=== PATIENT | female | born 1940 | race African-American/Black ===

== ENCOUNTER 2016-06-02 14:08 | Outpatient (RCR) | payer MEDICARE ==
[~2016-06-02 14:08] MED LIST: ALPRAZOLAM1 MG ORAL; ALPRAZOLAM1 MG PO; AMBIEN10 M1 ORAL; CEFEPIME 11 GM/50 ML IV; COLACE100 MG ORAL; COUMADIN1 MG ORAL; COZAAR50 MG PO; DIPHENHYDRAMINE25 M1 ORAL; GABAPENTIN400 MG PO; HEPARIN SO5000 UNIT2 SUBQ; HYDROCHLOROTH12.5 MG ORAL; LEVOTHYROXINE75 MCG ORAL; LIPITOR10 MG ORAL; LORCET 10-6501 EACH PO; METFORMIN HCL1000 M1 ORAL; MOM30 ML ORAL; NASONEX17 GM NASAL; NASONEX17 GM NS; NEURONTIN400 MG ORAL; NORCO 5-325 TA1 EAC1 ORAL; NORVASC5 MG ORAL; ONDANSETRON ODT8 MG PO; OXYCODON-ACETA1 EACH PO; PAROXETINE HCL20 MG PO; PERCOCET 7.5-31 EACH ORAL; PREVACID15 MG ORAL; SENOKOT1 TAB ORAL; VITAMIN C500 M1 ORAL; VITAMIN D31000 UNI1 PO; XANAX0.5 MG ORAL; ZOCOR10 MG ORAL; ZOLPIDEM TARTRA10 MG ORAL; ZYLOPRIM100 MG ORAL
== END 2016-06-30 | disposition home or self-care (01) ==
LOC: WCC 14:08
DX: L97.522 Non-pressure chronic ulcer of other part of left foot with fat layer exposed (principal); E08.621 Diabetes mellitus due to underlying condition with foot ulcer; E03.9 Hypothyroidism, unspecified; M19.90 Unspecified osteoarthritis, unspecified site; D64.9 Anemia, unspecified; Z79.01 Long term (current) use of anticoagulants
CPT/HCPCS: 11042; G0463

== ENCOUNTER 2016-07-07 13:30 | Outpatient (RCR) | payer MEDICARE | END 2016-07-28 | disposition home or self-care (01) | LOC: WCC 13:30 | DX: L97.522 Non-pressure chronic ulcer of other part of left foot with fat layer exposed (principal); E08.621 Diabetes mellitus due to underlying condition with foot ulcer; Z79.01 Long term (current) use of anticoagulants; E03.9 Hypothyroidism, unspecified; M19.90 Unspecified osteoarthritis, unspecified site; L97.322 Non-pressure chronic ulcer of left ankle with fat layer exposed | CPT/HCPCS: 11721; G0463 ==

== ENCOUNTER → 2016-07-21 | Outpatient (CLI) | payer MEDICARE ==
--- NOTE | 2016-07-21 14:40 | Diagnostic Imaging Report ---
Indication: PAIN Technique: 3 views of the left ankle Comparison: none Findings: No acute fractures. No dislocations. There is surgical hardware seen reducing old healed distal fibular and medial tibial fractures bones are osteoporotic. There are mild degenerative changes of the ankle joint. There is slight lateral soft tissue swelling Impression: No acute process. Findings as noted
== END | disposition home or self-care (01) ==
LOC: RAD 13:08
DX: S91.002A Unspecified open wound, left ankle, initial encounter (principal); X58.XXXA Exposure to other specified factors, initial encounter; Y93.9 Activity, unspecified; Y92.9 Unspecified place or not applicable

== ENCOUNTER 2016-08-04 13:19 | Outpatient (RCR) | payer MEDICARE | END 2016-08-28 | disposition home or self-care (01) | LOC: WCC 13:19 | DX: L97.322 Non-pressure chronic ulcer of left ankle with fat layer exposed (principal); E08.621 Diabetes mellitus due to underlying condition with foot ulcer; R60.0 Localized edema; E03.9 Hypothyroidism, unspecified; M19.90 Unspecified osteoarthritis, unspecified site; D64.9 Anemia, unspecified; Z79.01 Long term (current) use of anticoagulants | CPT/HCPCS: 87070; 87181; 87205; G0463 ==

== ENCOUNTER 2016-09-01 12:53 | Outpatient (RCR) | payer MEDICARE ==
[~2016-09-01] VITALS: Ht 170.2 cm; Wt 83.9 kg
[2016-09-24] MEDS ORDERED: Lidocaine HCl 2% Jelly 5ml Tube TOPIC ONE (11:15)
== END 2016-09-27 | disposition home or self-care (01) ==
LOC: WCC 12:53
DX: L97.322 Non-pressure chronic ulcer of left ankle with fat layer exposed (principal); E08.621 Diabetes mellitus due to underlying condition with foot ulcer; R60.0 Localized edema; E03.9 Hypothyroidism, unspecified; M19.90 Unspecified osteoarthritis, unspecified site; D64.9 Anemia, unspecified; Z79.01 Long term (current) use of anticoagulants
CPT/HCPCS: 11042; 11043

== ENCOUNTER 2016-09-29 13:01 | Outpatient (RCR) | payer MEDICARE ==
[~2016-09-29] VITALS: Ht 170.2 cm; Wt 83.9 kg
[2016-10-02] MEDS ORDERED: Lidocaine HCl 2% Jelly 5ml Tube TOPIC ONE (11:45)
[2016-10-09] MEDS ORDERED: Lidocaine HCl 2% Jelly 5ml Tube TOPIC ONE (16:00)
[2016-10-15] MEDS ORDERED: Lidocaine HCl 2% Jelly 5ml Tube TOPIC ONE (16:45)
== END 2016-10-28 | disposition home or self-care (01) ==
LOC: WCC 13:01
DX: L97.322 Non-pressure chronic ulcer of left ankle with fat layer exposed (principal); E08.621 Diabetes mellitus due to underlying condition with foot ulcer; R60.0 Localized edema; M19.90 Unspecified osteoarthritis, unspecified site; Z79.01 Long term (current) use of anticoagulants
CPT/HCPCS: 11042; G0463

== ENCOUNTER 2016-09-29 14:27 | Outpatient (CLI) | payer MEDICARE ==
[2016-09-29 15:29] LABS: ALANINE AMINOTRANSFERASE 11 U/L (3-33); ALBUMIN/GLOBULIN RATIO 0.9 (1.0-2.7); ANION GAP 15 (5-15); ASPARTATE AMINO TRANSFERASE 23 U/L (5-40); CALCIUM 10.7 mg/dL (8.6-10.2); CARBON DIOXIDE 27 mEQ/L (20-30); CHLORIDE 95 mEQ/L (98-107); CREATININE 1.3 mg/dL (0.5-0.9); HEMOLYSIS 17; POTASSIUM 4.2 mEQ/L (3.4-4.9); SODIUM 137 mEQ/L (135-145); TOTAL PROTEIN 8.8 g/dL (6.6-8.7)
== END 2016-09-29 15:27 | disposition home or self-care (01) ==
LOC: LAB 14:27
DX: L97.329 Non-pressure chronic ulcer of left ankle with unspecified severity (principal); L97.529 Non-pressure chronic ulcer of other part of left foot with unspecified severity; E46 Unspecified protein-calorie malnutrition
CPT/HCPCS: 36415; 80053

== ENCOUNTER 2016-10-06 12:37 | Outpatient (CLI) | payer MEDICARE | END 2016-10-06 13:50 | disposition home or self-care (01) | LOC: VAS 12:37 | DX: L97.929 Non-pressure chronic ulcer of unspecified part of left lower leg with unspecified severity (principal); L97.919 Non-pressure chronic ulcer of unspecified part of right lower leg with unspecified severity; E46 Unspecified protein-calorie malnutrition | CPT/HCPCS: 93922; 93925; 93970 ==

== ENCOUNTER 2016-11-03 12:48 | Outpatient (RCR) | payer MEDICARE | END 2016-11-27 | disposition home or self-care (01) | LOC: WCC 12:48 | DX: L97.322 Non-pressure chronic ulcer of left ankle with fat layer exposed (principal); E08.621 Diabetes mellitus due to underlying condition with foot ulcer; R60.0 Localized edema; T84.625A Infection and inflammatory reaction due to internal fixation device of left fibula, initial encounter; X58.XXXA Exposure to other specified factors, initial encounter; Y93.9 Activity, unspecified; Y92.9 Unspecified place or not applicable; Z79.01 Long term (current) use of anticoagulants; M19.90 Unspecified osteoarthritis, unspecified site | CPT/HCPCS: 29580; 87070; 87181; 87205; G0463 ==

== ENCOUNTER 2016-11-03 12:58 | Outpatient (CLI) | payer MEDICARE ==
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
--- NOTE | 2016-11-18 14:47 | Diagnostic Imaging Report ---
Indication: Skin ulceration in the lateral part ankle. Technique: Left ankle/hindfoot imaging utilizing multiplanar T1 fast spin-echo, proton and T2 fast spin-echo with fat saturation, and STIR. Comparison: None Findings: There is extensive magnetic susceptibility artifact especially with regard to the lateral malleolus and distal fibula which shows a plate and several screws (on plain film x-ray 07/21/16). Osteomyelitis cannot be excluded in the lateral malleolus which is the area of the ulceration. Within the area of bone that can be evaluated, there is no evidence of osteomyelitis with relatively preserved signal intensity on T1 and T2-weighted images. There is subcutaneous edema and thickening of the skin in the lateral part ankle, a finding that is nonspecific but could be due to cellulitis. There is also susceptibility artifact associated with 2 medial malleolus screws. Impression: Study is largely nondiagnostic for osteomyelitis due to magnetic susceptibility hardware artifact. No osteomyelitis as visualized.
== END 2016-11-03 14:58 | disposition home or self-care (01) ==
LOC: MRI 12:58
DX: M86.9 Osteomyelitis, unspecified (principal)
CPT/HCPCS: 29580; 87070; 87181; 87205

== ENCOUNTER 2017-04-10 16:56 | Inpatient (IN) | payer MEDICARE ==
[~2017-04-10] VITALS: Ht 170.2 cm; Wt 81.6 kg
[2017-04-10] MEDS ORDERED: UNOBMED (17:04)
[2017-04-10 18:28] VITALS: BP 120/77
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
[2017-04-10 19:41] LABS: BASOPHILS % (AUTO) 0.4 % (0.0-2.0); EOSINOPHILS % (AUTO) 0.5 % (0.0-3.0); LYMPHOCYTES % (AUTO) 18.2 % (20.0-45.0); MEAN CORPUSCULAR HEMOGLOBIN 30.8 PG (27.0-31.0); MEAN CORPUSCULAR HGB CONC 31.2 G/DL (32.0-36.0); MEAN CORPUSCULAR VOLUME 99 FL (80-99); MEAN PLATELET VOLUME 8.1 FL (6.5-10.1); MONOCYTES % (AUTO) 3.7 % (1.0-10.0); NEUTROPHILS % (AUTO) 77.3 % (45.0-75.0); PLATELET COUNT 238 K/UL (150-450); RED BLOOD COUNT 5.05 M/UL (4.20-5.40); RED CELL DISTRIBUTION WIDTH 11.5 % (11.6-14.8); WHITE BLOOD COUNT 13.6 K/UL (4.8-10.8)
[2017-04-10 20:05] LABS: INR 1.9 (0.9-1.1); PROTHROMBIN TIME 20.1 SEC (9.30-11.50)
[2017-04-10 20:47] LABS: ALANINE AMINOTRANSFERASE 22 U/L (12-78); ALBUMIN/GLOBULIN RATIO 0.6 (1.0-2.7); ANION GAP 19 mmol/L (5-15); ASPARTATE AMINO TRANSFERASE 16 U/L (15-37); CALCIUM 10.7 MG/DL (8.5-10.1); CARBON DIOXIDE 23 MMOL/L (21-32); CHLORIDE 86 MMOL/L (98-107); CKMB 1.9 NG/ML (0.0-3.6); CREATININE 2.7 MG/DL (0.55-1.30); LIPASE 1014 U/L (73-393); POTASSIUM 4.7 MMOL/L (3.5-5.1); SODIUM 128 MMOL/L (136-145); TOTAL PROTEIN 10.2 G/DL (6.4-8.2)
[2017-04-10 21:00] VITALS: BP 153/77
[2017-04-10 21:03] LABS: APPEARANCE,URINE SLIGHTLY CLOUDY; KETONES,URINE 3+ (NEGATIVE); LEUKOCYTE ESTERASE ,URINE NEGATIVE (NEGATIVE); NITRITE,URINE POSITIVE (NEGATIVE); PH,URINE 5 (4.5-8.0); PROTEIN,URINE 2+ (NEGATIVE); UROBILINOGEN,URINE NORMAL MG/DL (0.0-1.0)
[2017-04-10 21:12] LABS: RBC,URINE 0-2 /HPF (0 - 2)
[2017-04-10 21:13] LABS: BACTERIA,URINE MODERATE /HPF; SQUAMOUS EPITHELIAL CELL,UR OCCASIONAL /LPF (NONE/OCC)
[2017-04-10] MEDS ORDERED: cefTRIAXone 1 GM in NS 55 ML IVPB ONE (21:15)
[2017-04-10 23:45] VITALS: BP 133/85
[2017-04-11] VITALS (10 sets, daily range): BP systolic 113–162; BP diastolic 52–91
[2017-04-11 05:48] LABS: ANION GAP 6 mmol/L (5-15); CALCIUM 9.7 MG/DL (8.5-10.1); CARBON DIOXIDE 31 MMOL/L (21-32); CHLORIDE 106 MMOL/L (98-107); CREATININE 2.1 MG/DL (0.55-1.30); POTASSIUM 3.2 MMOL/L (3.5-5.1); SODIUM 143 MMOL/L (136-145)
[2017-04-11 05:54] LABS: ALANINE AMINOTRANSFERASE 20 U/L (12-78); ALBUMIN/GLOBULIN RATIO 0.6 (1.0-2.7); ASPARTATE AMINO TRANSFERASE 19 U/L (15-37); TOTAL PROTEIN 8.8 G/DL (6.4-8.2)
--- NOTE | 2017-04-11 10:03 | Diagnostic Imaging Report ---
Indication: SOB Comparison: 01/25/2015 Findings: Single view of the chest shows a normal cardiomediastinal silhouette. Pulmonary vasculature is normal. Lung are clear. Soft tissues and osseous structures are within normal limits. Impression: No acute chest disease
[2017-04-11] MEDS ORDERED: Levemir Flexpen SUBQ SCH (12:00)
[2017-04-11] MEDS ORDERED: NovoLOG Insulin Flexpen SUBQ SCH (13:00)
--- NOTE | 2017-04-11 13:37 | History & Physical ---
History and Physical History & Physicial dict DM w hyperosmolar state, better cont IVF, insulin VIET CHRISITAN Apr 11, 2017 13:37
[2017-04-11] MEDS ORDERED: ALPRAZolam 0.5mg tab ORAL PRN ×2 (13:45→14:00)
[2017-04-11] MEDS ORDERED: Norco 5mg/325mg tab ORAL PRN ×2 (13:45→17:45)
[2017-04-11] MEDS ORDERED: KCl 10% 40mEq/30ml liquid NG SCH ×2 (14:00→18:00)
[2017-04-11 15:16] LABS: INR 2.2 (0.9-1.1); PROTHROMBIN TIME 22.7 SEC (9.30-11.50)
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
[2017-04-11] MEDS: NovoLOG Insulin Flexpen SUBQ SCH ×2 (16:50→21:13)
[2017-04-11] MEDS: ALPRAZolam 0.5mg tab ORAL SCH (16:53)
[2017-04-11] MEDS ORDERED: Warfarin Sodium 4mg ORAL SCH (17:00)
[2017-04-11] MEDS ORDERED: ALPRAZolam 0.5mg tab ORAL SCH (18:00)
[2017-04-11] MEDS ORDERED: Zolpidem 5mg tab ORAL SCH (21:00)
[2017-04-11] MEDS: Levemir Flexpen SUBQ SCH (21:14)
[2017-04-11] MEDS: Zolpidem 5mg tab ORAL SCH (21:14)
[2017-04-12] VITALS: BP 136/100
[2017-04-12] MEDS: NovoLOG Insulin Flexpen SUBQ SCH ×8 (01:06→21:02)
[2017-04-12 04:00] VITALS: BP 131/76
[2017-04-12 06:00] LABS: BASOPHILS % (AUTO) 0.8 % (0.0-2.0); LYMPHOCYTES % (AUTO) 28.8 % (20.0-45.0); MEAN CORPUSCULAR HEMOGLOBIN 32.7 PG (27.0-31.0); MEAN CORPUSCULAR HGB CONC 34.1 G/DL (32.0-36.0); MEAN CORPUSCULAR VOLUME 96 FL (80-99); MEAN PLATELET VOLUME 8.6 FL (6.5-10.1); MONOCYTES % (AUTO) 6.1 % (1.0-10.0); NEUTROPHILS % (AUTO) 63.3 % (45.0-75.0); PLATELET COUNT 203 K/UL (150-450); RED BLOOD COUNT 4.37 M/UL (4.20-5.40); RED CELL DISTRIBUTION WIDTH 11.9 % (11.6-14.8); WHITE BLOOD COUNT 8.7 K/UL (4.8-10.8)
[2017-04-12 06:26] LABS: ALANINE AMINOTRANSFERASE 17 U/L (12-78); ALBUMIN/GLOBULIN RATIO 0.6 (1.0-2.7); ANION GAP 5 mmol/L (5-15); ASPARTATE AMINO TRANSFERASE 28 U/L (15-37); CALCIUM 10.2 MG/DL (8.5-10.1); CARBON DIOXIDE 28 MMOL/L (21-32); CHLORIDE 111 MMOL/L (98-107); CREATININE 1.6 MG/DL (0.55-1.30); POTASSIUM 4.2 MMOL/L (3.5-5.1); SODIUM 144 MMOL/L (136-145); THYROID STIMULATING HORMONE 0.969 uiU/mL (0.360-3.740); TOTAL PROTEIN 8.3 G/DL (6.4-8.2)
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
--- NOTE | 2017-04-12 07:45 | General Progress Note ---
Assessment/Plan Problem List: (1) Hypothyroidism ICD Codes: E03.9 - Hypothyroidism, unspecified SNOMED: 02480267 (2) DKA (diabetic ketoacidoses) ICD Codes: E13.10 - Other specified diabetes mellitus with ketoacidosis without coma SNOMED: 596241676, 14948780 (3) HTN (hypertension) ICD Codes: I10 - HTN (hypertension) SNOMED: 25184222 (4) DM (diabetes mellitus) ICD Codes: E11.9 - DM (diabetes mellitus) SNOMED: 37543100 Assessment/Plan continue Levemir 15 units bid add Novolog 8 units ac tid continue Levothyroxine 75 mcg daily - TSH is at target Subjective ROS Limited/Unobtainable: Yes Allergies: Coded Allergies: IODINE (Verified Allergy, Unknown, UNSPECIFIED, 08/11/10) LEVOFLOXACIN (Verified Allergy, Unknown, 12/14/11) METOCLOPRAMIDE (Verified Allergy, Unknown, UNSPECIFIED, 08/11/10) METRONIDAZOLE (Unverified Allergy, Unknown, Itching, 10/17/14) MORPHINE (Verified Allergy, Unknown, 08/11/10) Subjective events noted - transferred out of ICU Objective Last 24 Hour Vital Signs Date Time Temp Pulse Resp B/P (MAP) Pulse Ox O2 Delivery O2 Flow Rate FiO2 04/12/17 04:00 98.6 84 18 131/76 100 Room Air 84 04/12/17 04:00 84 04/12/17 00:00 97.9 86 20 136/100 100 Room Air 86 04/12/17 00:00 93 04/11/17 20:00 93 04/11/17 20:00 98.6 93 16 113/64 100 Room Air 93 04/11/17 16:11 79 04/11/17 16:11 97.4 79 21 124/74 98 Room Air 04/11/17 14:00 96 21 153/85 98 Room Air 04/11/17 13:00 87 22 129/72 98 Room Air 04/11/17 12:00 97.5 87 15 134/91 100 Room Air 04/11/17 12:00 87 04/11/17 11:00 86 15 120/83 95 Room Air 04/11/17 10:00 88 15 114/74 100 Room Air 04/11/17 09:00 97.1 64 23 162/52 100 Room Air 04/11/17 08:20 86 14 142/79 96 Room Air 04/11/17 07:50 98.5 86 14 142/79 96 Room Air Laboratory Tests 04/11/17 14:45: Prothrombin Time 22.7H, Prothromb Time International Ratio 2.2H 04/12/17 03:25: White Blood Count 8.7, Red Blood Count 4.37, Hemoglobin 14.3, Hematocrit 41.8, Mean Corpuscular Volume 96, Mean Corpuscular Hemoglobin 32.7H, Mean Corpuscular Hemoglobin Concent 34.1, Red Cell Distribution Width 11.9, Platelet Count 203, Mean Platelet Volume 8.6, Neutrophils (%) (Auto) 63.3, Lymphocytes (%) (Auto) 28.8, Monocytes (%) (Auto) 6.1, Eosinophils (%) (Auto) 1.0, Basophils (%) (Auto ) 0.8, Sodium Level 144, Potassium Level 4.2, Chloride Level 111H, Carbon Dioxide Level 28, Anion Gap 5, Blood Urea Nitrogen 37H, Creatinine 1.6H, Estimat Glomerular Filtration Rate , Glucose Level 101#, Calcium Level 10.2H, Total Bilirubin 0.3, Aspartate Amino Transf (AST/SGOT) 28, Alanine Aminotransferase (ALT/SGPT) 17, Alkaline Phosphatase 111, Total Protein 8.3H, Albumin 3.0L, Globulin 5.3, Albumin/Globulin Ratio 0.6L, Thyroid Stimulating Hormone (TSH) 0.969 Height (Feet): 5 Height (Inches): 7.00 Weight (Pounds): 180 General Appearance: lethargic Neck: normal alignment Cardiovascular: normal rate Respiratory/Chest: decreased breath sounds Abdomen: normal bowel sounds Pelvis: normal external exam Edema: 1+ Arm (L), 1+ Arm (R), 1+ Leg (L), 1+ Leg (R), 1+ Pedal (L), 1+ Pedal ( R), 1+ Generalized Objective Current Medications Medications (Trade) Dose Ordered Sig/Jeanne Route PRN Reason Start Time Stop Time Status Last Admin Dose Admin Acetaminophen/ Hydrocodone Bitart ([place] 5/325) 1 tab Q4H PRN ORAL For Pain 04/11/17 17:45 04/18/17 13:44 Alprazolam (Xanax) 0.5 mg Q8H PRN ORAL For Anxiety 04/11/17 14:00 04/18/17 13:59 Alprazolam (Xanax) 0.5 mg THREE TIMES A DAY ORAL 04/11/17 18:00 04/18/17 17:59 04/11/17 16:53 Dextrose (Dextrose 50%) STAT PRN IV Hypoglycemia 04/12/17 10:15 05/11/17 10:14 Gabapentin (Neurontin) 400 mg TID ORAL 04/11/17 18:00 05/11/17 17:59 04/11/17 16:53 Insulin Aspart (NovoLOG) EVERY 4 HOURS SUBQ 04/11/17 17:00 05/11/17 12:59 04/12/17 01:06 Insulin Detemir (Levemir) 15 units Q12HR SUBQ 04/11/17 21:00 05/11/17 11:59 04/11/17 21:14 Lansoprazole (Prevacid) 15 mg DAILY ORAL 04/12/17 09:00 05/12/17 08:59 Levothyroxine Sodium (Synthroid) 75 mcg BEFORE BREAKFAST ORAL 04/12/17 06:30 05/12/17 06:29 04/12/17 06:05 Paroxetine HCl (Paxil) 40 mg DAILY ORAL 04/12/17 09:00 05/12/17 08:59 Sodium Chloride 1,000 ml @ 100 mls/hr Q10H IV 04/11/17 14:45 05/11/17 06:14 04/12/17 02:35 Warfarin Sodium (Coumadin) 4 mg COUMADIN ORAL 04/11/17 17:00 04/16/17 16:59 04/11/17 16:49 Zolpidem Tartrate (Ambien) 5 mg BEDTIME ORAL 04/11/17 21:00 04/18/17 20:59 04/11/17 21:14 Item Value Date Time Bedside Blood Glucose 89 mg/dl 04/12/17 0500 Bedside Blood Glucose 239 mg/dl H 04/12/17 0106 Bedside Blood Glucose 379 mg/dl H 04/11/17 2114 Bedside Blood Glucose 218 mg/dl H 04/11/17 1650 Bedside Blood Glucose 261 mg/dl H 04/11/17 1228 Bedside Blood Glucose 198 mg/dl H 04/11/17 0750 Bedside Blood Glucose 221 mg/dl H 04/11/17 0600 MIHAI ROJAS Apr 12, 2017 07:45
[2017-04-12 08:00] VITALS: BP 157/70
[2017-04-12] MEDS: ALPRAZolam 0.5mg tab ORAL SCH ×3 (08:41→17:29)
[2017-04-12] MEDS: PARoxetine 20mg tab ORAL SCH (08:41)
[2017-04-12] MEDS: Levemir Flexpen SUBQ SCH ×2 (08:42→21:03)
[2017-04-12] MEDS ORDERED: PARoxetine 20mg tab ORAL SCH (09:00)
[2017-04-12] MEDS ORDERED: Warfarin Sodium 1mg ORAL SCH (09:00)
[2017-04-12] MEDS ORDERED: Lansoprazole 15mg cap ORAL SCH (09:00)
[2017-04-12 09:02] LABS: INR 2.8 (0.9-1.1)
[2017-04-12] MEDS: Lansoprazole 15mg cap ORAL SCH (10:42)
[2017-04-12 12:00] VITALS: BP 148/86
--- NOTE | 2017-04-12 13:20 | General Progress Note ---
Assessment/Plan Assessment/Plan 1. Hyperosmolar state, improved 2. Diabetes, mild DKA per endo 3. Dehydration with azotemia. 4. Hyponatremia, improved 5. Elevated lipase without signs of pancreatitis. 6. Hypertension. 7. Chronic pain. 8. Gout. 9. Depression. 10. UTI BS excellent tolerating PO UI - ordered rx dc plan tomorrow Subjective Constitutional: Reports: other - anxiety Cardiovascular: Denies: chest pain Respiratory: Denies: shortness of breath Allergies: Coded Allergies: IODINE (Verified Allergy, Unknown, UNSPECIFIED, 08/11/10) LEVOFLOXACIN (Verified Allergy, Unknown, 12/14/11) METOCLOPRAMIDE (Verified Allergy, Unknown, UNSPECIFIED, 08/11/10) METRONIDAZOLE (Unverified Allergy, Unknown, Itching, 10/17/14) MORPHINE (Verified Allergy, Unknown, 08/11/10) Objective Last 24 Hour Vital Signs Date Time Temp Pulse Resp B/P (MAP) Pulse Ox O2 Delivery O2 Flow Rate FiO2 04/12/17 08:00 97.7 94 20 157/70 95 Room Air 84 04/12/17 08:00 90 04/12/17 04:00 98.6 84 18 131/76 100 Room Air 84 04/12/17 04:00 84 04/12/17 00:00 97.9 86 20 136/100 100 Room Air 86 04/12/17 00:00 93 04/11/17 20:00 93 04/11/17 20:00 98.6 93 16 113/64 100 Room Air 93 04/11/17 16:11 79 04/11/17 16:11 97.4 79 21 124/74 98 Room Air 04/11/17 14:00 96 21 153/85 98 Room Air Intake and Output 04/12/17 04/13/17 18:59 06:59 Intake Total 600 ml Balance 600 ml IV Total 600 ml # Bowel Movements 1 Laboratory Tests 04/11/17 14:45: Prothrombin Time 22.7H, Prothromb Time International Ratio 2.2H 04/12/17 03:25: White Blood Count 8.7, Red Blood Count 4.37, Hemoglobin 14.3, Hematocrit 41.8, Mean Corpuscular Volume 96, Mean Corpuscular Hemoglobin 32.7H, Mean Corpuscular Hemoglobin Concent 34.1, Red Cell Distribution Width 11.9, Platelet Count 203, Mean Platelet Volume 8.6, Neutrophils (%) (Auto) 63.3, Lymphocytes (%) (Auto) 28.8, Monocytes (%) (Auto) 6.1, Eosinophils (%) (Auto) 1.0, Basophils (%) (Auto ) 0.8, Sodium Level 144, Potassium Level 4.2, Chloride Level 111H, Carbon Dioxide Level 28, Anion Gap 5, Blood Urea Nitrogen 37H, Creatinine 1.6H, Estimat Glomerular Filtration Rate , Glucose Level 101#, Calcium Level 10.2H, Total Bilirubin 0.3, Aspartate Amino Transf (AST/SGOT) 28, Alanine Aminotransferase (ALT/SGPT) 17, Alkaline Phosphatase 111, Total Protein 8.3H, Albumin 3.0L, Globulin 5.3, Albumin/Globulin Ratio 0.6L, Thyroid Stimulating Hormone (TSH) 0.969 04/12/17 08:45: Prothrombin Time 30.0H, Prothromb Time International Ratio 2.8H Height (Feet): 5 Height (Inches): 7.00 Weight (Pounds): 180 General Appearance: no apparent distress, obese Neck: supple Cardiovascular: normal rate Respiratory/Chest: lungs clear VIET CHRISTIAN Apr 12, 2017 13:20
[2017-04-12 16:00] VITALS: BP 153/85
[2017-04-12] MEDS ORDERED: Warfarin Sodium 2.5mg ORAL ONE (17:00)
[2017-04-12 20:00] VITALS: BP 155/88
[2017-04-12] MEDS: Zolpidem 5mg tab ORAL SCH (21:01)
[2017-04-13] VITALS: BP 144/80
[2017-04-13] MEDS: NovoLOG Insulin Flexpen SUBQ SCH ×6 (00:43→13:14)
[2017-04-13 04:00] VITALS: BP 146/78
[2017-04-13 07:38] LABS: BASOPHILS % (AUTO) 0.9 % (0.0-2.0); EOSINOPHILS % (AUTO) 1.4 % (0.0-3.0); LYMPHOCYTES % (AUTO) 27.1 % (20.0-45.0); MEAN CORPUSCULAR HGB CONC 33.5 G/DL (32.0-36.0); MEAN CORPUSCULAR VOLUME 95 FL (80-99); MEAN PLATELET VOLUME 8.7 FL (6.5-10.1); MONOCYTES % (AUTO) 4.2 % (1.0-10.0); NEUTROPHILS % (AUTO) 66.5 % (45.0-75.0); PLATELET COUNT 167 K/UL (150-450); RED BLOOD COUNT 4.14 M/UL (4.20-5.40); RED CELL DISTRIBUTION WIDTH 11.6 % (11.6-14.8); WHITE BLOOD COUNT 6.5 K/UL (4.8-10.8)
[2017-04-13 07:56] LABS: INR 2.4 (0.9-1.1); PROTHROMBIN TIME 25.9 SEC (9.30-11.50)
[2017-04-13 08:11] LABS: ALANINE AMINOTRANSFERASE 15 U/L (12-78); ALBUMIN/GLOBULIN RATIO 0.6 (1.0-2.7); ANION GAP 5 mmol/L (5-15); ASPARTATE AMINO TRANSFERASE 19 U/L (15-37); CALCIUM 9.3 MG/DL (8.5-10.1); CARBON DIOXIDE 26 MMOL/L (21-32); CHLORIDE 110 MMOL/L (98-107); CREATININE 1.3 MG/DL (0.55-1.30); POTASSIUM 3.7 MMOL/L (3.5-5.1); SODIUM 141 MMOL/L (136-145); TOTAL PROTEIN 7.1 G/DL (6.4-8.2)
[2017-04-13] MEDS: ALPRAZolam 0.5mg tab ORAL SCH ×2 (08:21→12:10)
[2017-04-13] MEDS: PARoxetine 20mg tab ORAL SCH (08:21)
[2017-04-13] MEDS: Lansoprazole 15mg cap ORAL SCH (08:22)
[2017-04-13 08:35] VITALS: BP 112/73
[2017-04-13] MEDS: Levemir Flexpen SUBQ SCH (09:28)
[2017-04-13] MEDS ORDERED: oxyCODONE HCL/Acetaminophen 5/325mg ORAL PRN (10:00)
[2017-04-13] MEDS ORDERED: LEVEMIR FL100 UNIT/1 SUBQ (11:44)
[2017-04-13 12:08] VITALS: BP 143/65
[2017-04-13 15:56] VITALS: BP 130/76
[2017-04-13] MEDS ORDERED: Tubing IV Secondary IV ONE (16:24)
[2017-04-13] MEDS ORDERED: Warfarin Sodium 4mg PO SCH (17:00)
--- NOTE | 2017-04-15 11:10 | Discharge Summary ---
Discharge Summary Hospital Course Date of Admission Apr 10, 2017 at 18:35 Date of Discharge Apr 13, 2017 at 16:25 Admitting Diagnosis sepsis HPI Magdalena Llanos is a 76 year old female who was admitted on Apr 10, 2017 at 18: 35 for Sepsis Hospital Course [id number] Discharge Discharge Disposition Patient was discharged to [facility] with HH Discharge Diagnoses: Nita Sheikh NP Apr 15, 2017 11:10
--- NOTE | 2017-04-15 21:15 | Discharge Summary 2 SIG ---
DATE OF ADMISSION: 04/10/2017 DATE OF DISCHARGE: 04/13/2017 DIE CASTER: Juan M Ball M.D. BRIEF HOSPITAL COURSE: The patient is a 76-year-old female, who was brought in by the family to the emergency room due to 1 to 2 days of lethargy and weakness. She was observed to be less responsive than usual. On evaluation at ED, glucose was 919. Anion gap was 19. She was started on insulin drip and was admitted to ICU for hyperosmolar nonketotic state. She was given IV hydration. Following day, insulin level went down to 214. She was transferred out of ICU. Insulin drip was discontinued. Metformin was placed on hold. She was given subcutaneous Levemir 15 units b.i.d. and NovoLog 8 units before meals t.i.d. TSH was normal and was continued on levothyroxine 75 mcg daily. She was tolerating diet well with blood sugar in good control. She was eventually discharged home with home health. FINAL DIAGNOSES: 1. Hyperosmolar state. 2. Diabetes with mild diabetic ketoacidosis. 3. Dehydration with azotemia. 4. Hyponatremia. 5. Elevated lipase without signs of pancreatitis. 6. Hypertension. 7. Chronic pain. 8. Gout. 9. Depression. 10. Urinary tract infection. DISPOSITION: The patient was discharged back to assisted living with home health. DISCHARGE MEDICATIONS: Refer to medication list. DISCHARGE INSTRUCTIONS: Follow up with PMD in a week. Alex Low M.D. I have been assigned to dictate discharge summary on this account and I was not involved in the patient's management. Nita Sheikh N.P. DR: MATTHEW JOB#: [id number] CC: FLAVIO
--- NOTE | 2017-04-18 15:55 | Cardiology Report ---
APPROVED REPORT EKG Measurement Heart [id number] Normal sinus rhythm Left axis deviation Moderate voltage criteria for LVH, may be normal variant Cannot rule out Septal infarct, age undetermined Possible Lateral infarct, age undetermined Inferior infarct, age undetermined Abnormal ECG
== END 2017-04-13 16:25 | disposition home health service (06) | DRG 638 ==
LOC: EMR 17:30 → ICU 18:35 → EDBEDREQTM 21:21 → EDBEDREQ 21:21 → EDBEDREQSVC 21:21 → EDBEDREQ 04-11 05:36 → 2W 04-11 15:03 → 2E 04-12 15:39
DX: E11.10 Type 2 diabetes mellitus with ketoacidosis without coma (principal); N17.9 Acute kidney failure, unspecified; E86.0 Dehydration; N39.0 Urinary tract infection, site not specified; E87.1 Hypo-osmolality and hyponatremia; E11.00 Type 2 diabetes mellitus with hyperosmolarity without nonketotic hyperglycemic-hyperosmolar coma (NKHHC); Z79.84 Long term (current) use of oral hypoglycemic drugs; I10 Essential (primary) hypertension; F32.9 Major depressive disorder, single episode, unspecified; M10.9 Gout, unspecified; G89.29 Other chronic pain; Z88.6 Allergy status to analgesic agent; Z88.1 Allergy status to other antibiotic agents; Z88.8 Allergy status to other drugs, medicaments and biological substances; B96.20 Unspecified Escherichia coli [E. coli] as the cause of diseases classified elsewhere; Z79.01 Long term (current) use of anticoagulants
CPT/HCPCS: 36415; 71010; 80053; 81003; 82550; 82553; 82962; 83605; 83690; 83880; 84443; 84484; 85025; 85610; 85730; 87040; 87081; 87086; 87181; 93005; 99291; J1815; S5561

== ENCOUNTER 2017-05-18 15:17 | Outpatient (RCR) | payer MEDICARE ==
[~2017-05-18 15:17] MED LIST changes: +LEVEMIR FL100 UNIT/1 SUBQ; +UNOBMED
== END 2017-05-30 | disposition home or self-care (01) ==
LOC: WCC 15:17
DX: L97.522 Non-pressure chronic ulcer of other part of left foot with fat layer exposed (principal); E11.621 Type 2 diabetes mellitus with foot ulcer; M79.672 Pain in left foot; S90.822D Blister (nonthermal), left foot, subsequent encounter; X58.XXXD Exposure to other specified factors, subsequent encounter; E11.9 Type 2 diabetes mellitus without complications; E03.9 Hypothyroidism, unspecified; M19.90 Unspecified osteoarthritis, unspecified site; Z79.01 Long term (current) use of anticoagulants
CPT/HCPCS: 11042; G0463

== ENCOUNTER 2017-06-15 15:28 | Outpatient (RCR) | payer MEDICARE | END 2017-06-30 | disposition home or self-care (01) | LOC: WCC 15:28 | DX: L97.522 Non-pressure chronic ulcer of other part of left foot with fat layer exposed (principal); E11.621 Type 2 diabetes mellitus with foot ulcer; M79.672 Pain in left foot; S90.822D Blister (nonthermal), left foot, subsequent encounter; L60.2 Onychogryphosis; E03.9 Hypothyroidism, unspecified; M19.90 Unspecified osteoarthritis, unspecified site; Z79.01 Long term (current) use of anticoagulants; X58.XXXD Exposure to other specified factors, subsequent encounter | CPT/HCPCS: 11042; 11720; G0463 ==

== ENCOUNTER 2017-07-13 14:42 | Outpatient (RCR) | payer MEDICARE | END 2017-07-28 | disposition home or self-care (01) | LOC: WCC 14:42 | DX: L97.522 Non-pressure chronic ulcer of other part of left foot with fat layer exposed (principal); E11.621 Type 2 diabetes mellitus with foot ulcer; M79.672 Pain in left foot; S90.822D Blister (nonthermal), left foot, subsequent encounter; L97.422 Non-pressure chronic ulcer of left heel and midfoot with fat layer exposed; E03.9 Hypothyroidism, unspecified; M19.90 Unspecified osteoarthritis, unspecified site; Z79.01 Long term (current) use of anticoagulants; X58.XXXD Exposure to other specified factors, subsequent encounter | CPT/HCPCS: G0463 ×2 ==

== ENCOUNTER 2017-08-03 15:07 | Outpatient (RCR) | payer MEDICARE | END 2017-08-28 | disposition home or self-care (01) | LOC: WCC 15:07 | DX: L97.522 Non-pressure chronic ulcer of other part of left foot with fat layer exposed (principal); E11.621 Type 2 diabetes mellitus with foot ulcer; M79.672 Pain in left foot; S90.822D Blister (nonthermal), left foot, subsequent encounter; L97.422 Non-pressure chronic ulcer of left heel and midfoot with fat layer exposed; Z79.01 Long term (current) use of anticoagulants; E03.9 Hypothyroidism, unspecified; M19.90 Unspecified osteoarthritis, unspecified site | CPT/HCPCS: G0463 ×3 ==

== ENCOUNTER 2017-08-31 14:35 | Outpatient (RCR) | payer MEDICARE | END 2017-09-27 | disposition home or self-care (01) | LOC: WCC 14:35 | DX: E11.621 Type 2 diabetes mellitus with foot ulcer (principal); L97.522 Non-pressure chronic ulcer of other part of left foot with fat layer exposed; M79.672 Pain in left foot; S90.822D Blister (nonthermal), left foot, subsequent encounter; L97.422 Non-pressure chronic ulcer of left heel and midfoot with fat layer exposed; X58.XXXD Exposure to other specified factors, subsequent encounter; E03.9 Hypothyroidism, unspecified; Z79.01 Long term (current) use of anticoagulants; L60.2 Onychogryphosis | CPT/HCPCS: G0463 ==